=== PATIENT | female | born 1970 | race Caucasian/White ===

== ENCOUNTER 2016-06-06 16:08 | Emergency (ER) | payer OTHER ==
[~2016-06-06 16:08] MED LIST: AZIT500T2 PO; BENZ100 PO
[2016-06-06 16:10] VITALS: BP 158/93; PULSE 110; RESP 20; TEMP 98; O2SAT 99
[2016-06-06] MEDS ORDERED: diphenhydrAMINE HCL 50 MG/ML VIAL IV PUSH ONE (17:30)
[2016-06-06] MEDS: METOCLOPRAMIDE HCL 10 MG/2 ML VIAL IV PUSH ONE ×2 (17:30→18:04)
[2016-06-06] MEDS ORDERED: PIPERACIL-TAZO 4.5 GM PREMIX 100 ML IV ONE (17:30)
[2016-06-06] MEDS ORDERED: SODIUM CHLOR 0.9% 1000 ML INJ 1,000 ML IV ONE (17:30)
--- NOTE | 2016-06-06 17:37 | PD ---
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 She states that she was seen in urgent care a week ago this past Wednesday which now is 8 days ago. She was seen for possible bronchitis and placed on Zithromax. She states that she had taken the antibiotic and her coughing congestion had improved. She has had subsequent development of cramping abdominal pain and diarrhea. She states that she has had multiple watery stools initially. Now she has developed increased more severe lower abdominal pain over the last day. It appears to be more localized to the right lower quadrant. She states she does feel somewhat nauseous but has not vomited. She has had a lack of appetite today. She states that she has not eaten and she states that she typically has a good appetite. She ate normally yesterday. She denies any fever or chills. No hematemesis. No melena. No dysuria or frequency. No hematuria. She states the pain is moderate but can be more severe at times. She states that sharp cramping in nature. No alleviating factors. There is no known exacerbating factors except for laying down. She feels somewhat improved with sitting up. PFSH Past Medical History Narrative Medical Gallbladder pancreatitis Tetanus Vaccination: > 5 Years Influenza Vaccination: Yes ?: Not Past Surgical History Narrative Surgical Hysterectomy, cholecystectomy Gynecologic Surgery: Yes (HYSTERECTOMY) Hysterectomy: Yes (2014) Social History Alcohol Use: No Tobacco Use: No Substance Use: No Allergies-Medications (Allergen,Severity, Reaction): Coded Allergies: No Known Allergies (Unverified , 06/06/16) Reported Meds & Prescriptions Reported Meds & Active Scripts Active Cipro (Ciprofloxacin HCl) 500 Mg Tab 500 Mg PO BID Zofran (Ondansetron HCl) 4 Mg Tab 4 Mg PO Q6HR PRN Levsin-SL (Hyoscyamine Sulfate) 0.125 Mg Subl 0.125-0.25 Mg SL Q6H Review of Systems Except as stated in HPI: all other systems reviewed are Neg Physical Exam Narrative GENERAL: Well-developed, well-nourished in no apparent distress. Nontoxic appearing. HEAD: Normocephalic, atraumatic. EYES: Pupils equal round and reactive. Extraocular motions intact. No scleral icterus. No injection or drainage. ENT: Nose clear. Throat without erythema, tonsillar hypertrophy or exudate. Uvula midline. Airway patent. NECK: Trachea midline. Supple, nontender, moves head freely. No central bony tenderness or spasm. CARDIOVASCULAR: Regular rate and rhythm without murmurs, gallops, or rubs. RESPIRATORY: Clear to auscultation. Breath sounds equal bilaterally. No wheezes , rales, or rhonchi. GASTROINTESTINAL: Abdomen soft, obese, patient has mild diffuse tenderness to deep palpation but has more localizing point tenderness in the right lower quadrant. She has mild guarding but no rebound. No hepato-splenomegaly. EXTREMITIES: No clubbing, cyanosis, or edema. No joint tenderness. BACK: Nontender without deformity. No flank tenderness. NEUROLOGICAL: Awake, alert and oriented x 3 .Cranial nerves grossly intact. Motor and sensory grossly within normal limits. Normal speech. Data Data Last Documented VS Vital Signs Date Time Temp Pulse Resp B/P Pulse Ox O2 Delivery O2 Flow Rate FiO2 06/06/16 18:07 99 18 151/90 99 Room Air 06/06/16 16:10 98.0 Orders Complete Blood Count With Diff (06/06/16 17:27) Comprehensive Metabolic Panel (06/06/16 17:27) Prothrombin Time / Inr (Pt) (06/06/16 17:27) Act Partial Throm Time (Ptt) (06/06/16 17:27) Lipase (06/06/16 17:27) Urinalysis - C+S If Indicated (06/06/16 17:27) Ct Abd/Pel W Iv Contrast(Rout) (06/06/16 17:27) Sodium Chlor 0.9% 1000 Ml Inj (Ns 1000 M (06/06/16 17:30) Piperacil-Tazo 4.5 Gm Premix (Zosyn 4.5 (06/06/16 17:30) Diphenhydramine Inj (Benadryl Inj) (06/06/16 17:30) Metoclopramide Inj (Reglan Inj) (06/06/16 17:30) Iohexol 350 Inj (Omnipaque 350 Inj) (06/06/16 18:48) Labs Laboratory Tests Test 06/06/16 06/06/16 17:45 17:50 Urine Color YELLOW Urine Turbidity HAZY Urine pH 5.5 Urine Specific Norvell 1.015 Urine Protein NEG mg/dL Urine Glucose (UA) NEG mg/dL Urine Ketones 10 mg/dL Urine Occult Blood TRACE Urine Nitrite NEG Urine Bilirubin NEG Urine Urobilinogen LESS THAN 2.0 MG/DL Urine Leukocyte Esterase NEG Urine RBC 1 /hpf Urine WBC 2 /hpf Urine Squamous Epithelial 5 /hpf Cells Urine Bacteria RARE /hpf Urine Mucus FEW /lpf Microscopic Urinalysis Comment CULT NOT INDICATED White Blood Count 13.7 TH/MM3 Red Blood Count 4.39 MIL/MM3 Hemoglobin 13.3 GM/DL Hematocrit 38.6 % Mean Corpuscular Volume 87.9 FL Mean Corpuscular Hemoglobin 30.2 PG Mean Corpuscular Hemoglobin 34.4 % Concent Red Cell Distribution Width 13.6 % Platelet Count 396 TH/MM3 Mean Platelet Volume 8.3 FL Neutrophils (%) (Auto) 68.0 % Lymphocytes (%) (Auto) 21.9 % Monocytes (%) (Auto) 8.8 % Eosinophils (%) (Auto) 0.4 % Basophils (%) (Auto) 0.9 % Neutrophils # (Auto) 9.3 TH/MM3 Lymphocytes # (Auto) 3.0 TH/MM3 Monocytes # (Auto) 1.2 TH/MM3 Eosinophils # (Auto) 0.1 TH/MM3 Basophils # (Auto) 0.1 TH/MM3 CBC Comment DIFF FINAL Differential Comment Prothrombin Time 10.5 SEC Prothromb Time International 1.0 RATIO Ratio Activated Partial 30.3 SEC Thromboplast Time Sodium Level 137 MEQ/L Potassium Level 3.7 MEQ/L Chloride Level 102 MEQ/L Carbon Dioxide Level 27.9 MEQ/L Anion Gap 7 MEQ/L Blood Urea Nitrogen 8 MG/DL Creatinine 0.67 MG/DL Estimat Glomerular Filtration 95 ML/MIN Rate Random Glucose 88 MG/DL Calcium Level 8.8 MG/DL Total Bilirubin 0.4 MG/DL Aspartate Amino Transf 21 U/L (AST/SGOT) Alanine Aminotransferase 30 U/L (ALT/SGPT) Alkaline Phosphatase 137 U/L Total Protein 8.3 GM/DL Albumin 3.7 GM/DL Lipase 82 U/L [facility] Medical Decision Making Medical Screen Exam Complete: Yes Emergency Medical Condition: Yes Medical Record Reviewed: Yes Interpretation(s) CBC & BMP Diagram 06/06/16 17:50 Laboratory Tests Test 06/06/16 06/06/16 17:45 17:50 Urine Color YELLOW Urine Turbidity HAZY Urine pH 5.5 Urine Specific Norvell 1.015 Urine Protein NEG mg/dL Urine Glucose (UA) NEG mg/dL Urine Ketones 10 mg/dL Urine Occult Blood TRACE Urine Nitrite NEG Urine Bilirubin NEG Urine Urobilinogen LESS THAN 2.0 MG/DL Urine Leukocyte Esterase NEG Urine RBC 1 /hpf Urine WBC 2 /hpf Urine Squamous Epithelial 5 /hpf Cells Urine Bacteria RARE /hpf Urine Mucus FEW /lpf Microscopic Urinalysis Comment CULT NOT INDICATED White Blood Count 13.7 TH/MM3 Red Blood Count 4.39 MIL/MM3 Hemoglobin 13.3 GM/DL Hematocrit 38.6 % Mean Corpuscular Volume 87.9 FL Mean Corpuscular Hemoglobin 30.2 PG Mean Corpuscular Hemoglobin 34.4 % Concent Red Cell Distribution Width 13.6 % Platelet Count 396 TH/MM3 Mean Platelet Volume 8.3 FL Neutrophils (%) (Auto) 68.0 % Lymphocytes (%) (Auto) 21.9 % Monocytes (%) (Auto) 8.8 % Eosinophils (%) (Auto) 0.4 % Basophils (%) (Auto) 0.9 % Neutrophils # (Auto) 9.3 TH/MM3 Lymphocytes # (Auto) 3.0 TH/MM3 Monocytes # (Auto) 1.2 TH/MM3 Eosinophils # (Auto) 0.1 TH/MM3 Basophils # (Auto) 0.1 TH/MM3 CBC Comment DIFF FINAL Differential Comment Prothrombin Time 10.5 SEC Prothromb Time International 1.0 RATIO Ratio Activated Partial 30.3 SEC Thromboplast Time Sodium Level 137 MEQ/L Potassium Level 3.7 MEQ/L Chloride Level 102 MEQ/L Carbon Dioxide Level 27.9 MEQ/L Anion Gap 7 MEQ/L Blood Urea Nitrogen 8 MG/DL Creatinine 0.67 MG/DL Estimat Glomerular Filtration 95 ML/MIN Rate Random Glucose 88 MG/DL Calcium Level 8.8 MG/DL Total Bilirubin 0.4 MG/DL Aspartate Amino Transf 21 U/L (AST/SGOT) Alanine Aminotransferase 30 U/L (ALT/SGPT) Alkaline Phosphatase 137 U/L Total Protein 8.3 GM/DL Albumin 3.7 GM/DL Lipase 82 U/L Last 24 hours Impressions Abdomen/Pelvis CT 06/06/16 [id number] Signed Impressions: Service Date/Time: Monday, June 06, 2016 18:43 - CONCLUSION: 1. No evidence of appendicitis. 2. Status post cholecystectomy. Mild prominence of the biliary system. This is most likely reservoir effect. However, this can be correlated with patient's liver laboratory values. Tin Garza MD Differential Diagnosis Differential diagnoses: Acute appendicitis, diverticulitis, colitis, infectious diarrhea, dehydration, Crohn's, ulcerative colitis Narrative Course IV access is obtained. Patient's given a liter bolus of saline, Benadryl 50 mg IV and Reglan 10 mg IV. Routine laboratory tests sent for analysis. CT scan of the abdomen. The CAT scan of the abdomen shows no acute intra-abdominal process. The appendix is normal. She has prior cholecystectomy. The patient's white count was mildly elevated. Her electrolytes are otherwise unremarkable. She has had improvement of her pain with the Benadryl and Reglan. The patient states that she cannot obtain a stool specimen at this time. The patient be treated with Cipro for possible infectious diarrhea and is also given Levsin for abdominal cramping. This is abdominal pain, diarrhea Diagnosis Primary Impression: Abdominal pain Qualified Code: R10.84 - Generalized abdominal pain Additional Impression: Diarrhea Qualified Code: R19.7 - Diarrhea, unspecified type Patient Instructions: General Instructions Departure Forms: Tests/Procedures, Work Release Special Instructions: No work 2 days. Additional Instructions: Rest. Increase fluids. 2 Aleve twice daily as needed for additional pain. Zofran, Cipro and Levsin. Recheck with a primary care doctor within 48 hours or return to the ER sooner if any problems develop. Med/Other Pt SpecificInfo: Prescription(s) given Scripts Ciprofloxacin (Cipro)500 Mg [id number] Mg PO BID #14 TAB Prov:Emma Jones MD 06/06/16 Ondansetron (Zofran)4 Mg Tab4 Mg PO Q6HR PRN (NAUSEA OR VOMITING) #6 TAB Prov:Emma Jones MD 06/06/16 Hyoscyamine Odt (Levsin-SL)0.125 Mg Subl0.125-0.25 Mg SL Q6H #20 TAB.SL Ref 0 Prov:Emma Jones MD 06/06/16 Disposition: 01 DISCHARGE HOME Condition: Stable Ray Llanos Jun 06, 2016 17:37
[2016-06-06 18:07] VITALS: BP 151/90; PULSE 99; RESP 18; O2SAT 99
[2016-06-06 18:18] LABS: AUTOMATED NEUTROPHIL # 9.3 TH/MM3 (1.8-7.7); BASOPHIL # 0.1 TH/MM3 (0-0.2); BASOPHIL % 0.9 % (0.0-2.0); EOSINOPHIL # 0.1 TH/MM3 (0-0.4); EOSINOPHIL % 0.4 % (0.0-4.0); HEMATOCRIT 38.6 % (35.0-46.0); HEMO FLAGS DIFF FINAL; LYMPH % 21.9 % (9.0-44.0); MEAN CELL VOLUME 87.9 FL (80.0-100.0); MEAN CORPUSCULAR HEMOGLOBIN 30.2 PG (27.0-34.0); MEAN CORPUSCULAR HGB CONC 34.4 % (32.0-36.0); MONO % 8.8 % (0.0-8.0); PLATELET COUNT 396 TH/MM3 (150-450); RED BLOOD COUNT 4.39 MIL/MM3 (4.00-5.30); RED CELL DISTRIBUTION WIDTH 13.6 % (11.6-17.2); WHITE BLOOD COUNT 13.7 TH/MM3 (4.0-11.0)
[2016-06-06 18:21] LABS: BACTERIA, URINE RARE /hpf; BLOOD, URINE TRACE (NEG); COMMENT (UR) CULT NOT INDICATED; CULTURE IF INDICATED CULT NOT INDICATED; GLUCOSE,URINE NEG (NEG); KETONE, URINE 10 mg/dL (NEG); MUCUS URINE FEW /lpf (OCC); NITRITE,URINE NEG (NEG); PH, URINE 5.5 (5.0-8.5); SQUAMOUS EPITHELIAL CELL URINE 5 /hpf (0-5); URINE COLOR YELLOW (YELLW/STRAW)
[2016-06-06 18:27] LABS: APTT (PATIENT) 30.3 SEC (24.3-30.1); PROTHROMBIN TIME - PATIENT 10.5 SEC (9.8-11.6)
[2016-06-06 18:46] LABS: ALT (GPT) 30 U/L (10-53); ANION GAP 7 MEQ/L (5-15); AST (GOT) 21 U/L (15-37); BICARBONATE 27.9 MEQ/L (21.0-32.0); BLOOD UREA NITROGEN 8 MG/DL (7-18); CHLORIDE 102 MEQ/L (98-107); GLOMERULAR FILTRATION RATE 95 ML/MIN (>89); POTASSIUM 3.7 MEQ/L (3.5-5.1); SODIUM (NA) 137 MEQ/L (136-145)
[2016-06-06 18:48] LABS: ALKALINE PHOSPHATASE 137 U/L (45-117); TOTAL BILIRUBIN ADULT 0.4 MG/DL (0.2-1.0)
[2016-06-06] MEDS ORDERED: IOHEXOL 350 MG/ML 10 ML VIAL (for RAD DIAG) IV ONE (18:48)
--- NOTE | 2016-06-06 19:09 | RADRPT ---
EXAM DATE/TIME: 06/06/2016 18:43 [facility] COMPARISON: No previous studies available for comparison. INDICATIONS : Evaluate for appendicitis. IV CONTRAST: 96 cc Omnipaque 350 (iohexol) IV ORAL CONTRAST: No oral contrast ingested. RADIATION DOSE: 16.92 CTDIvol (mGy) MEDICAL HISTORY : Hypertension. SURGICAL HISTORY : Cholecystectomy. Hysterectomy. ENCOUNTER: Initial ACUITY: 1 day PAIN SCALE: 5/10 LOCATION: Right lower quadrant TECHNIQUE: Volumetric scanning of the abdomen and pelvis was performed. Using automated exposure control and ad justment of the mA and/or kV according to patient size, radiation dose was kept as low as reasonably achievable to obtain optimal diagnostic quality images. FINDINGS: LOWER LUNGS: The visualized lower lungs are clear. LIVER: Homogeneous density without lesion. There is mild dilation of the biliary tree. No gallbladder, clayton gically removed. SPLEEN: Normal size without lesion. PANCREAS: Within normal limits. KIDNEYS: Normal in size and shape. There is no mass, stone or hydronephrosis. ADRENAL GLANDS: Within normal limits. VASCULAR: There is no aortic aneurysm. BOWEL/MESENTERY: The stomach, small bowel, and colon demonstrate no acute abnormality. There is no free intraperitone al air or fluid. The appendix is unremarkable. No inflammatory changes are seen. There is stool throu ghout the colon. ABDOMINAL WALL: Within normal limits. RETROPERITONEUM: There is no lymphadenopathy. BLADDER: No wall thickening or mass. REPRODUCTIVE: Within normal limits. INGUINAL: There is no lymphadenopathy or hernia. MUSCULOSKELETAL: Within normal limits for patient age. CONCLUSION: 1. No evidence of appendicitis. 2. Status post cholecystectomy. Mild prominence of the biliary system. This is most likely reservoir effect. However, this can be correlated with patient's liver laboratory values. Tin Garza MD on June 06, 2016 at 19:04 Board Certified Radiologist. This report was verified electronically.
[2016-06-06] MEDS ORDERED: CIPR-9 PO (19:25)
[2016-06-06] MEDS ORDERED: ZOFR4TAB PO (19:25)
[2016-06-06] MEDS ORDERED: LEVS0.124 SL (19:25)
== END 2016-06-06 20:33 | disposition home or self-care (01) ==
LOC: NEPD 16:08
DX: R10.84 Generalized abdominal pain (principal); R19.7 Diarrhea, unspecified
CPT/HCPCS: 74177; 80053; 81001; 83690; 84703; 85025; 85610; 85730; 96361; 96365; 96375; 99284; J1200; J2543; J2765; J7030; Q9967